=== PATIENT | male | born 1945 | race Caucasian/White ===

== ENCOUNTER 2019-01-01 16:59 | Outpatient (CLI) | payer MEDICARE, OTHER ==
--- NOTE | 2019-01-02 13:42 | Ultrasound Report ---
Reason: NONHEALING NONSURGICAL WOUND, LE NONHEALING ULCER Procedure Date: 01/01/2019 Accession Number: [id number] / [id number] Procedure: US - Duplex Lwr Ext Arterial Bilat CPT Code: FULL RESULT: EXAM: BILATERAL LOWER EXTREMITY ARTERIAL DOPPLER ULTRASOUND EXAM DATE: 01/01/2019 05:35 PM. CLINICAL HISTORY: Nonhealing nonsurgical wound, lower extremity nonhealing ulcer. COMPARISON: None. TECHNIQUE: Real-time sonographic vascular imaging was performed by the electronics engineering manager, utilizing color-flow, Doppler flow, and spectral analysis. Multiple patient support representative static images were saved for review. FINDINGS: No ankle brachial index required. Atheromatous plaques are noted in arteries of both lower extremities. Monophasic waveforms are noted in the right peroneal artery. Monophasic waveforms are also noted in the left anterior tibial and peroneal artery. The remaining vessels demonstrate biphasic and triphasic waveforms. No focal hemodynamically significant stenosis, dissection or occlusion identified. Right Lower Extremity: SATELLITE TV INSTALLER: PSV 121 cm/sec. Triphasic waveform. PSFA: PSV 87 cm/sec. Triphasic waveform. MSFA: PSV 93 cm/sec. Triphasic waveform. DSFA: PSV 96 cm/sec. Triphasic waveform. PFA: PSV 42 cm/sec. Biphasic waveform. POP: PSV 52 cm/sec. Triphasic waveform. TANIYA: PSV 71 cm/sec. Biphasic waveform. LAWN MOWER: PSV 96 cm/sec. Triphasic waveform. BAILEY: PSV 42 cm/sec. Monophasic waveform. DPA: PSV 83 cm/sec. Biphasic waveform. Left Lower Extremity: SATELLITE TV INSTALLER: PSV 77 cm/sec. Biphasic waveform. PSFA: PSV 92 cm/sec. Triphasic waveform. MSFA: PSV 82 cm/sec. Triphasic waveform. DSFA: PSV 80 cm/sec. Biphasic waveform. PFA: PSV 91 cm/sec. Biphasic waveform. POP: PSV 50 cm/sec. Biphasic waveform. TANIYA: PSV 54 cm/sec. Monophasic waveform. LAWN MOWER: PSV 78 cm/sec. Biphasic waveform. BAILEY: PSV 55 cm/sec. Monophasic waveform. DPA: PSV 53 cm/sec. Biphasic waveform. IMPRESSION: 1. No hemodynamically significant stenosis, occlusion or dissection identified. 2. Monophasic waveforms noted in the bilateral peroneal and left anterior tibial arteries. Remaining vessels demonstrate normal triphasic or biphasic waveforms. [facility]
== END 2019-01-01 17:00 | disposition home or self-care (01) ==
LOC: DI 16:59
PROVIDERS: ATTEND Internal Medicine Infectious Disease
DX: L97.909 Non-pressure chronic ulcer of unspecified part of unspecified lower leg with unspecified severity (principal); T14.8XXA Other injury of unspecified body region, initial encounter
CPT/HCPCS: 93925

== ENCOUNTER 2022-07-30 13:15 | Outpatient (CLI) | payer MEDICARE, OTHER ==
[2022-07-30 13:35] LABS: BASOPHILS # (AUTO) 0.1 10^3/uL (0.0-0.1); EOSINOPHILS # (AUTO) 0.2 10^3/uL (0.0-0.7); HCT - HEMATOCRIT 45.6 % (42.0-52.0); HGB - HEMOGLOBIN 15.3 g/dL (14.0-18.0); LYMPHOCYTES # (AUTO) 1.4 10^3/uL (1.5-3.5); LYMPHOCYTES % (AUTO) 27.3 %; MEAN CORPUSCULAR HGB CONC 33.6 g/dL (32.0-36.0); MEAN CORPUSCULAR VOLUME 89.4 fL (80.0-94.0); MEAN PLATELET VOLUME 9.1 fL (7.4-11.4); MONOCYTES # (AUTO) 0.2 10^3/uL (0.0-1.0); MONOCYTES % (AUTO) 4.7 %; NEUTROPHILS # (AUTO) 3.1 10^3/uL (1.5-6.6); NEUTROPHILS % (AUTO) 63.6 %; PLT - PLATELET COUNT 178 10^3/uL (130-450); RED CELL DISTRIBUTION WIDTH 12.1 % (12.0-15.0); WHITE BLOOD COUNT 4.9 x10^3/uL (4.8-10.8)
[2022-07-30 14:02] LABS: ALBUMIN 4.5 g/dL (3.2-5.5); ALBUMIN/GLOBULIN RATIO 1.7 (1.0-2.2); ALKALINE PHOSPHATASE 117 IU/L (42-121); ALT ALANINE AMINOTRANSFERASE 25 IU/L (10-60); AST ASPARTATE AMINOTRANSFERASE 27 IU/L (10-42); BUN - BLOOD UREA NITROGEN 16 mg/dL (6-20); CALCIUM 9.5 mg/dL (8.5-10.3); CARBON DIOXIDE - CO2 27 mmol/L (21-32); CHLORIDE 104 mmol/L (101-111); CHOL/HDL RATIO 5.4 (<5.0); CHOLESTEROL 193 mg/dL; CREATININE 1.1 mg/dL (0.6-1.2); GFR - MDRD 65 (>89); GLUCOSE 127 mg/dL (70-100); HDL CHOLESTEROL 36 mg/dL; LDL CHOLESTEROL,CALCULATED 120 mg/dL; LDL/HDL RATIO 3.3 (<3.6); SODIUM 140 mmol/L (135-145); TOTAL PROTEIN 7.1 g/dL (6.7-8.2); TRIGLYCERIDES 186 mg/dL; VLDL CHOLESTEROL 37 mg/dL
[2022-08-02 10:09] LABS: HIV-1 RNA BY PCR QUANT <20 copies/mL (.)
== END 2022-07-30 13:16 | disposition home or self-care (01) ==
LOC: LAB 13:15
PROVIDERS: ATTEND Internal Medicine Infectious Disease
DX: I10 Essential (primary) hypertension (principal); R35.1 Nocturia; Z21 Asymptomatic human immunodeficiency virus [HIV] infection status
CPT/HCPCS: 36415; 80053; 80061; 81599; 83721; 84153; 85025; 86360; 87536